=== PATIENT | male | born 2000 | race Caucasian/White ===

== ENCOUNTER 2019-01-01 20:01 | Emergency (ER) | payer OTHER ==
[2019-01-01] MEDS ORDERED: Lidocaine 1% MPF ** 5 ML VIAL INJ ONE (21:33)
--- NOTE | 2019-01-01 21:36 | ED ---
Skin Complaint - HPI Summary HPI Summary: This pt is a 18 Y/O M presenting to [facility] with a CC of a laceration on his L thumb. He states that the pain is currently a 5/10 in severity. He states that he was washing dishes and accidentally cut his thumb over a knife that was stuck in the dishes. He states that he applied pressure to the laceration and controlled the bleeding. He denies any fever, chills, headaches, N/V, SOB, CP, and abdominal pain. He has no alleviating symptoms and no aggravating symptoms. - History of Current Complaint Chief Complaint: EDLacSutureRecheck Time Seen by Provider: 01/01/19 21:29 Stated Complaint: LEFT WRIST LACERATION PER PT Hx Obtained From: Patient Onset/Duration: Started Hours Ago - 2, Still Present Skin Exposure Onset/Duration: Hours Ago - 2 Timing: Constant Onset Severity: Moderate Current Severity: Moderate Pain Intensity: 5 Pain Scale Used: 0-10 Numeric Skin Location: Hand - L thumb Aggravating Symptom(s): Nothing Alleviating Symptom(s): Nothing Associated Signs & Symptoms: Negative - fever, chills, headaches, N/V, SOB, CP, and abdominal pain - Allergy/Home Medications Allergies/Adverse Reactions: Allergies Allergy/AdvReac Type Severity Reaction Status Date / Time No Known Allergies Allergy Verified 01/01/19 20:15 Home Medications: Home Medications NK [No Home Medications Reported] 01/01/19 [History Confirmed 01/01/19] PMH/Surg Hx/FS Hx/Imm Hx Previously Healthy: Yes Endocrine/Hematology History: Denies: Hx Diabetes Cardiovascular History: Denies: Hx Hypertension Respiratory History: Denies: Hx Asthma Sensory History: Denies: Hx Contacts or Glasses Opthamlomology History: Denies: Hx Contacts or Glasses - Surgical History Surgical History: Yes Surgery Procedure, Year, and Place: [place] tooth surgery 2017 - Immunization History Immunizations Up to Date: Yes Infectious Disease History: No Infectious Disease History: Denies: Traveled Outside the [place] in Last 30 Days - Family History Known Family History: Negative: Cardiac Disease, Hypertension, Diabetes - Social History Occupation: Student - [employer] Lives: Dormitory/Roommates Alcohol Use: Occasionally Hx Substance Use: No Substance Use Type: Reports: None Hx Tobacco Use: No Smoking Status (MU): Never Smoked Tobacco Review of Systems Negative: Fever, Chills Negative: Chest Pain Negative: Shortness Of Breath Negative: Abdominal Pain, Vomiting, Nausea Skin: Other - laceration to L thumb Negative: Headache All Other Systems Reviewed And Are Negative: Yes Physical Exam - Summary Physical Exam Summary: Constitutional: Well-developed, Well-nourished, Alert. (-) Distressed Skin: Warm, Dry, 4 cm laceration to the proximal portion of the thumb. HENT: Normocephalic; Atraumatic Eyes: Conjunctiva normal Neck: Musculoskeletal ROM normal neck. (-) JVD, (-) Stridor, (-) Tracheal deviation Cardio: Rhythm regular, rate normal, Heart sounds normal; Intact distal pulses; The pedal pulses are 2+ and symmetric. Radial pulses are 2+ and symmetric. (-) Murmur Pulmonary/Chest wall: Effort normal. (-) Respiratory distress, (-) Wheezes, (-) Rales Abd: Soft, (-) tenderness, (-) Distension, (-) Guarding, (-) Rebound Musculoskeletal: (-) Edema, Full range of motion and normal pulses. Lymph: (-) Cervical adenopathy Neuro: Alert, Oriented x3 Psych: Mood and affect Normal Triage Information Reviewed: Yes Vital Signs On Initial Exam: Initial Vitals Temp Pulse Resp BP Pulse Ox 99 F 91 18 151/97 100 01/01/19 20:13 01/01/19 20:13 01/01/19 20:13 01/01/19 20:13 01/01/19 20:13 Vital Signs Reviewed: Yes Procedures - Laceration/Wound Repair 1 Location: Other - L thumb of L Description: Linear Anesthesia: Local, 1.0%, Lido Length, Depth and Shape: 4 cm Betadine Prep?: No Irrigated w/ Saline (ccs): 5 Laceration/Wound Explored: clean Suture Type: Prolene Number of Sutures: 6 Layer Closure?: Yes Sterile Dressing Applied?: Yes Diagnostics - Vital Signs Vital Signs Temp Pulse Resp BP Pulse Ox 01/01/19 20:13 99 F 91 18 151/97 100 - Laboratory Lab Statement: Any lab studies that have been ordered have been reviewed, and results considered in the medical decision making process. Course/Dx - Course Course Of Treatment: Patient is here with a laceration to the palm of his left hand just proximal to his thumb. Patient has full range of motion in his thumb with no evidence of tendon laceration. Patient is neurovascularly intact. Patient had successful repair of his laceration - Diagnoses Provider Diagnoses: Thumb laceration Discharge ED - Sign-Out/Discharge Documenting (check all that apply): Patient Departure - discharge Patient Received Moderate/Deep Sedation with Procedure: No - Discharge Plan Condition: Stable Disposition: HOME Patient Education Materials: Care For Your Stitches (ED), Laceration (ED) Referrals: [facility] [Provider Group] - 01/10/19 Additional Instructions: PLEASE RETURN TO THE EMERGENCY DEPARTMENT IF YOU EXPERIENCE ANY RED STREAKS OR PUS COMING FROM YOUR LACERATION THIS IS A SIGN OF INFECTION AND REQUIRES IMMEDIATE ATTENTION. Please follow up with either [facility] or return to the emergency department in 7-10 days to have your stitches removed. Take 300 mgs of Ibuprofen every 6 hours as needed for pain. - Billing Disposition and Condition Condition: STABLE Disposition: Home - Attestation Statements Document Initiated by Scribe: Yes Documenting Scribe: David Veras Provider For Whom Camdenibe is Documenting (Include Credential): Cristian Meier MD Scribe Attestation: David Lopez, scribed for Cristian Meier MD on 01/03/19 at 1120. Scribe Documentation Reviewed: Yes Provider Attestation: The documentation as recorded by the David soto accurately reflects the service I personally performed and the decisions made by Cristian baker MD Status of Scribe Document: Viewed
[2019-01-01 22:21] VITALS: BP 144/82
== END 2019-01-01 22:20 | disposition home or self-care (01) ==
LOC: ED 20:01
DX: S61.012A Laceration without foreign body of left thumb without damage to nail, initial encounter (principal); W26.0XXA Contact with knife, initial encounter; Y93.G1 Activity, food preparation and clean up; Y92.9 Unspecified place or not applicable
CPT/HCPCS: 12002; 99282